=== PATIENT | male | born 1995 | race Two or more races ===

== ENCOUNTER 2023-03-12 15:01 | Emergency (ER) | payer OTHER ==
[~2023-03-12] VITALS: Ht 182.9 cm; Wt 105.0 kg
[2023-03-12 15:03] VITALS: O2SAT 98
[2023-03-12 16:25] VITALS: BP 127/78; PULSE 90; RESP 16; TEMP 98.7
== END 2023-03-12 16:26 ==
LOC: ER 15:01
DX: R10.9 Unspecified abdominal pain (principal); R11.2 Nausea with vomiting, unspecified
CPT/HCPCS: 82962; 99283